=== PATIENT | male | born 1970 | race African-American/Black ===

== ENCOUNTER 2025-05-17 17:53 | Emergency (ER) | payer MEDICAID ==
[~2025-05-17] VITALS: Ht 190.5 cm; Wt 102.7 kg
[2025-05-17] MEDS ORDERED: IBUP-1492 PO (23:21)
[2025-05-17 23:30] VITALS: BP 133/89; PULSE 78; RESP 18; TEMP 98.3; O2SAT 100
[2025-05-17] MEDS: IBUPROFEN 800 MG TABLET PO ONE (23:30)
== END 2025-05-18 | disposition home or self-care (01) ==
LOC: EMS 17:53
DX: S90.01XA Contusion of right ankle, initial encounter (principal); S90.02XA Contusion of left ankle, initial encounter; J45.909 Unspecified asthma, uncomplicated; Z79.899 Other long term (current) drug therapy; V19.9XXA Pedal cyclist (driver) (passenger) injured in unspecified traffic accident, initial encounter; Y93.55 Activity, bike riding; Y92.89 Other specified places as the place of occurrence of the external cause; Y99.8 Other external cause status
CPT/HCPCS: 99283